=== PATIENT | male | born 1985 | race Hispanic/Latino ===

== ENCOUNTER 2017-08-16 13:45 | Outpatient (CLI) | payer OTHER | END 2017-08-16 13:46 | disposition home or self-care (01) | LOC: BICULT 13:45 | PROVIDERS: ATTEND Family Medicine | DX: N50.9 Disorder of male genital organs, unspecified (principal); N50.3 Cyst of epididymis | CPT/HCPCS: 76870; 93976 ==

== ENCOUNTER 2017-08-31 07:40 | Outpatient (CLI) | payer OTHER ==
[2017-08-31] MEDS ORDERED: Iopamidol 370 76% 100 ML VIAL ONE (09:00)
--- NOTE | 2017-08-31 10:15 | CT ---
CT OF ABDOMEN AND PELVIS PERFORMED WITH CONTRAST ENHANCEMENT: History: Enlarged testicle x one year. FINDINGS: The lung bases are clear. The liver, spleen, pancreas, and gallbladder regions appear unremarkable. Right and left adrenal glands and right and left kidneys are normal in size. Small hypodensity involv ing the left kidney is statistically most likely a cyst. There is no significant periaortic or mesent jacobo adenopathy. CT OF PELVIS PERFORMED WITH CONTRAST ENHANCEMENT: The appendix is normal. There is no evidence of adenopathy or mass. There is a large fat containing r ight inguinal hernia which extends into the scrotal sac. IMPRESSION: Large fat containing right inguinal hernia. The herniated fat extends into the scrotum. POS: [facility]
== END 2017-08-31 07:41 | disposition home or self-care (01) ==
LOC: SCSCT 07:40
PROVIDERS: ATTEND Family Medicine
DX: N50.9 Disorder of male genital organs, unspecified (principal); K40.90 Unilateral inguinal hernia, without obstruction or gangrene, not specified as recurrent
CPT/HCPCS: 74177

== ENCOUNTER 2017-09-21 16:09 | Outpatient (CLI) | payer OTHER ==
[2017-09-21 16:35] LABS: #Basophils 0.1 thou/uL (0.0-0.2); #Eosinphils 0.4 thou/uL (0.0-0.7); #Lymphocytes 2.3 thou/uL (1.20-3.40); #Monocytes 0.7 thou/uL (0.11-0.59); #Neutrophils 4.1 thou/uL (1.40-6.50); %Basophils 0.9 % (0.0-1.0); %Eosinophils 4.8 % (0.0-10.0); %Lymphocytes 30.5 % (21.0-51.0); %Monocytes 8.9 % (0.0-10.0); %Neutrophils 54.9 % (42.0-75.0); Hemoglobin 15.4 g/dL (14.0-18.0); Mean Corpuscular HGB CONC 33.3 g/dL (32.0-36.0); Mean Corpuscular Hemoglobin 31.1 pg (27.0-31.0); Mean Corpuscular Volume 93.4 fl (80.0-94.0); Mean Platelet Volume 7.1 fL (7.4-10.4); Platelet Count 225 thou/uL (130-400); RBC Distribution Width 11.6 % (11.5-14.5); Red Blood Cell (RBC) Count 4.96 mill/uL (4.70-6.10); White Blood Cell (WBC) Count 7.5 thou/uL (4.8-10.8)
[2017-09-21 16:54] LABS: Anion Gap 10 mmol/L (10-20); BUN (Urea Nitrogen) 14 mg/dL (8.9-20.6); Calc. Creatinine Clearance 0 mL/min (70-130); Calcium 10.3 mg/dL (7.8-10.44); Carbon Dioxide 30 mmol/L (22-29); Chloride 102 mmol/L (98-107); Estimated GFR-MDRD Greater than 90; Glucose 99 mg/dL (70-105); Potassium 4.4 mmol/L (3.5-5.1); Sodium 138 mmol/L (136-145)
== END 2017-09-21 16:10 | disposition home or self-care (01) ==
LOC: LABBT 16:09
PROVIDERS: ATTEND Surgery
DX: Z01.812 Encounter for preprocedural laboratory examination (principal); K40.90 Unilateral inguinal hernia, without obstruction or gangrene, not specified as recurrent
CPT/HCPCS: 80048; 85025

== ENCOUNTER 2017-09-22 11:04 | Day surgery (SDC) | payer OTHER ==
[2017-09-21 16:29] VITALS: BMI 28.3
[~2017-09-22 11:04] MED LIST: Dexamethasone 20 MG/5 ML VIAL ONE; Glycopyrrolate 0.2 MG/ML 5 ML SYRINGE ONE; Ketorolac Tromethamine 30 MG/ML VIAL ONE; Lidocaine 1% PF 5 ML VIAL ONE; Ondansetron HCl/PF 4 MG/2 ML Vial ONE; PROPOFOL 200 MG/20 ML VIAL ONE
[2017-09-22] MEDS ORDERED: CEFAZOLIN/Water 2 GM/20 ML SYRINGE ONE (11:40)
[2017-09-22] MEDS ORDERED: Bupivacaine/Epinephrine 0.25% 30 ML VIAL ONE (11:43)
[2017-09-22] MEDS ORDERED: Fentanyl 250 MCG/5 ML VIAL ONE (11:46)
[2017-09-22] MEDS ORDERED: Midazolam HCl 2 mg/2 ml Vial ONE (12:07)
[2017-09-22] MEDS ORDERED: HYDROmorphone 0.5 MG/0.5 ML SYRINGE ONE ×2 (13:27→14:41)
--- NOTE | 2017-09-25 19:12 | OP ---
DATE OF PROCEDURE: 09/22/2017 PREOPERATIVE DIAGNOSIS: Right inguinal hernia. POSTOPERATIVE DIAGNOSIS: Right inguinal hernia. PROCEDURE: Da Shena laparoscopic right inguinal hernia repair with mesh, Covidien 3DMax large. SURGEON: Dr. Vincent Siddiqui. ESTIMATED BLOOD LOSS: Minimal. COMPLICATIONS: None. SPECIMEN: None. FINDINGS: Right inguinal hernia with incarcerated omental fat. INDICATION: The patient is a 32-year-old male with a history of a large right inguinal hernia. Risk s, benefits, alternatives discussed. He gives consent. TECHNIQUE: The patient was taken to the operating room and placed supine on the table. After genera l anesthetic was obtained, the abdomen was shaved. A Pack catheter was placed. The abdomen is prep ped and draped in a sterile fashion. Curved incision made above the umbilicus. Cautery was used to dissect down to and score the fascia. Abdominal cavity entered bluntly using a Ivonne clamp followed the 12 mm Ethicon trocar. High-flow pneumoperitoneum was obtained. The patient was placed in [place] position. Left and right abdominal 8 mm robot assist trocars were placed. All ports were do cked to the robot. The surgeon goes to the console. The peritoneum was taken down in the right lowe r quadrant in the preperitoneal space is entered. The preperitoneal space was bluntly dissected to p ubic tubercle medially and to the anterior superior iliac crest laterally. The patient had significa nt omentum in the hernia, it was very difficult to reduce the hernia sac went all the way to the test icle, so there was meticulous dissection performed all the way down and the indirect defect. Ultimat esperanza, the omentum was able to be reduced in the hernia sac dissected high up onto the peritoneum. The re was no direct inguinal hernia. Covidien 3DMax large mesh the right side brought into the abdomina l cavity and the end-labeled medial aspect was placed over pubic medially. The mesh is laid out late ral and in the inguinal area to cover the femoral indirect and direct areas. It is sewn via 2-0 Vicr yl. Medial tract to the pubic tubercle and to the posterior fascia lateral to the inferior epigastri c vessels. The peritoneum was reapproximated using running Stratafix. There was a large peritoneal defect over the previous hernia sac and this was sewn via pursestring of an additional Stratafix sutu re. All port sites were infiltrated using local anesthetic. All ports were removed under camera vis ualization. Pneumoperitoneum was let down. PDS was used to close the fascial defect above the umbil icus. All incisions were irrigated and closed using 4-0 Monocryl and Dermabond. The patient was en route to recovery in stable condition. All instrument counts, needle counts, and lap counts were cor rect.
== END 2017-09-22 16:45 | disposition home or self-care (01) ==
LOC: SDC 11:04
PROVIDERS: ATTEND Surgery
PROC: 0YU54JZ Supplement Right Inguinal Region with Synthetic Substitute, Percutaneous Endoscopic Approach (ICD-10-PCS; principal; 2017-09-22)
DX: K40.30 Unilateral inguinal hernia, with obstruction, without gangrene, not specified as recurrent (principal); Z79.899 Other long term (current) drug therapy; Z88.6 Allergy status to analgesic agent; Z88.8 Allergy status to other drugs, medicaments and biological substances
CPT/HCPCS: C1781; J1100; J1170; J1885; J2001; J2250; J2405; J2704; J3010